=== PATIENT | male | born 1955 | race Caucasian/White ===

== ENCOUNTER 2021-05-17 12:32 | Emergency (ER) | payer OTHER, BC ==
[~2021-05-17] VITALS: Ht 180.3 cm; Wt 76.2 kg
== END 2021-05-17 13:58 | disposition home or self-care (01) ==
LOC: ER 13:00
DX: S01.01XA Laceration without foreign body of scalp, initial encounter (principal); W01.0XXA Fall on same level from slipping, tripping and stumbling without subsequent striking against object, initial encounter; Y93.73 Activity, racquet and hand sports; Y92.318 Other athletic court as the place of occurrence of the external cause; Z79.01 Long term (current) use of anticoagulants; I25.10 Atherosclerotic heart disease of native coronary artery without angina pectoris; E78.5 Hyperlipidemia, unspecified; Z86.718 Personal history of other venous thrombosis and embolism
CPT/HCPCS: 70450; 72125; 99283